=== PATIENT | male | born 2000 | race Caucasian/White ===

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

== ENCOUNTER 2021-03-11 03:47 | Emergency (ER) | payer MEDICAID | END 2021-03-11 04:23 | LOC: EEVIPCON 03:47 → ERS 03:47 | DX: S02.2XXA Fracture of nasal bones, initial encounter for closed fracture (principal); F10.129 Alcohol abuse with intoxication, unspecified; E10.9 Type 1 diabetes mellitus without complications; W50.0XXA Accidental hit or strike by another person, initial encounter | CPT/HCPCS: 70160 ==

== ENCOUNTER 2024-02-02 03:44 | Emergency (ER) | payer OTHER ==
[2024-02-02 04:07] LABS: #Basophils Less than 0.03 10x3/uL (0.0-0.2); %Basophils 0.3 % (0.0-1.0); %Eosinophils 0.5 % (0.0-10.0); %Lymphocytes 45.5 % (21.0-51.0); %Monocytes 6.5 % (0.0-10.0); %Neutrophils 46.9 % (42.0-75.0); Hemoglobin 13.1 g/dL (14.0-18.0); Mean Corpuscular HGB CONC 35.4 g/dL (32.0-36.0); Mean Corpuscular Hemoglobin 31.1 pg (27.0-31.0); Mean Corpuscular Volume 87.9 fL (78.0-98.0); Mean Platelet Volume 10.1 fL (7.4-10.4); Platelet Count 212 10x3/uL (130-400); RBC Distribution Width 11.7 % (11.5-14.5); Red Blood Cell (RBC) Count 4.21 mill/uL (4.70-6.10)
[2024-02-02 04:22] LABS: Phosphorus 3.5 mg/dL (2.3-4.7)
[2024-02-02 04:33] LABS: ALT (SGPT) 17 U/L (8-55); AST (SGOT) 19 U/L (5-34); Alkaline Phosphatase 80 U/L (40-110); Anion Gap 18 mmol/L (10-20); BUN (Urea Nitrogen) 13 mg/dL (8.9-20.6); Bilirubin, Total 0.6 mg/dL (0.2-1.2); Calc. Creatinine Clearance 0 mL/min (70-130); Calcium 8.6 mg/dL (7.8-10.44); Carbon Dioxide 18 mmol/L (22-29); Chloride 108 mmol/L (98-107); Estimated GFR 95; Globulin 2.6 g/dL (2.4-3.5); Glucose 440 mg/dL (70-105); Magnesium 1.9 mg/dL (1.6-2.6); Protein, Total 6.6 g/dL (6.0-8.3); Sodium 140 mmol/L (136-145)
[2024-02-02] MEDS ORDERED: Insulin Glargine 30 UNITS/0.3 ML VIAL SC SCH (05:00)
[2024-02-02 05:01] LABS: Actual Bicarbonate (HCO3v) 19.6 mEq/L (22-28); Base Excess -5.4 mEq/L (-2.0 to +3.0); Chloride (VBG) 107 mmol/L (98-106); Hematocrit-VBG 41 % (42.0-52.0); Hemoglobin (Hb) 13.9 g/dL (13.2-17.3); Potassium (VBG) 4.04 mmol/L (3.70-5.30); Sodium 142 mmol/L (133-146); pH (venous) 7.347 (7.32-7.43)
[2024-02-02 07:24] LABS: Actual Bicarbonate (HCO3v) 19.4 mEq/L (22-28); Calcium, Ionized (venous) 1.16 mmol/L (1.16-1.32); Chloride (VBG) 106 mmol/L (98-106); Hematocrit-VBG 40 % (42.0-52.0); Hemoglobin (Hb) 13.5 g/dL (13.2-17.3); Potassium (VBG) 4.22 mmol/L (3.70-5.30); Sodium 141 mmol/L (133-146); pH (venous) 7.325 (7.32-7.43)
== END 2024-02-02 09:38 | disposition home or self-care (01) ==
LOC: ERS 03:44
DX: S00.531A Contusion of lip, initial encounter (principal); F10.129 Alcohol abuse with intoxication, unspecified; E10.65 Type 1 diabetes mellitus with hyperglycemia; X58.XXXA Exposure to other specified factors, initial encounter
CPT/HCPCS: 36415; 36416; 80053; 82010; 82805; 83735; 84100; 85025; 93005; J1815